=== PATIENT | female | born 1970 | race Caucasian/White ===

== ENCOUNTER 2018-04-12 16:42 | Emergency (ER) | payer MEDICAID ==
--- NOTE | 2018-04-12 18:30 | ED PDOC ---
Arrival/HPI - General Chief Complaint: Back Pain Time Seen by Provider: 04/12/18 17:02 Historian: Patient - History of Present Illness Narrative History of Present Illness (Text): you were treated in the ED today for having upper and lower back pain for about 2 weeks then started having transient chest pain but otherwise without any fall/ injury/neck pain/loss of consciousness/nausea/vomiting/headache/dizziness/ difficulty breathing/abdomen pain/numbness/tingling/loss of limb or bowel or bladder function/pain with urination/drug use/travel/prior blood clots/hormonal use/thoughts to harm yourself or others or hallucinations. Time/Duration: > week (2) Symptom Onset: Gradual Symptom Course: Intermittent Quality: Aching Severity Level: 2 Activities at Onset: Rest Context: Sitting Past Medical History - Provider Review Nursing Documentation Reviewed: Yes - Travel History Have you recently traveled outside [place] w/in the past 3 mons?: No - Cardiac Hx Cardiac Disorders: No - Pulmonary Hx Respiratory Disorders: No - Neurological Hx Neurological Disorder: No - HEENT Hx HEENT Disorder: No - Renal Hx Renal Disorder: No - Endocrine/Metabolic Hx Endocrine Disorders: No - Hematological/Oncological Hx Blood Disorders: No - Integumentary Hx Dermatological Disorder: No - Musculoskeletal/Rheumatological Hx Musculoskeletal Disorders: No - Gastrointestinal Hx Gastrointestinal Disorders: Yes Hx Gall Bladder Disease: Yes - Genitourinary/Gynecological Hx Genitourinary Disorders: No - Psychiatric Hx Psychophysiologic Disorder: No Hx Substance Use: No - Surgical History Hx Cholecystectomy: Yes Family/Social History - Physician Review Nursing Documentation Reviewed: Yes Family/Social History: No Known Family HX Smoking Status: Never Smoked Hx Alcohol Use: No Hx Substance Use: No Allergies/Home Meds Allergies/Adverse Reactions: Allergies No Known Allergies Allergy (Verified 04/12/18 16:47) Home Medications: Home Meds Medication Instructions Recorded Confirmed Latanoprost 0.005% Opht [Xalatan 1 drop OU HS 04/12/18 04/12/18 Opht] Review of Systems - Review of Systems Constitutional: Normal Eyes: Normal ENT: Normal Respiratory: Normal Cardiovascular: Chest Pain Gastrointestinal: Normal Genitourinary Female: Normal Musculoskeletal: Back Pain Skin: Normal Neurological: Normal Endocrine: Normal Hemo/Lymphatic: Normal Psychiatric: Normal Physical Exam Vital Signs Reviewed: Yes Vital Signs Temp Pulse Resp BP Pulse Ox 04/12/18 16:48 99.0 F 83 19 145/87 98 Temperature: Afebrile Blood Pressure: Hypertensive Pulse: Regular Respiratory Rate: Normal Appearance: Positive for: Well-Appearing, Non-Toxic, Comfortable Pain Distress: None Mental Status: Positive for: Alert and Oriented X 3 - Systems Exam Head: Present: Atraumatic, Normocephalic Pupils: Present: PERRL Extroacular Muscles: Present: EOMI Conjunctiva: Present: Normal Ears: Present: Normal Mouth: Present: Moist Mucous Membranes Pharnyx: Present: Normal Nose (External): Present: Atraumatic Nose (Internal): Present: Normal Inspection Neck: Present: Normal Range of Motion, Other (no c-t-l spinal tenderness but mild left mid-back muscle discomfort wo redness) Respiratory/Chest: Present: Clear to Auscultation, Good Air Exchange Cardiovascular: Present: Regular Rate and Rhythm, Other (no pulsatile masses) Back: Present: Paraspinal Tenderness Upper Extremity: Present: Normal Inspection Lower Extremity: Present: Normal Inspection Neurological: Present: GCS=15, CN II-XII Intact, Speech Normal, Motor Func Grossly Intact Skin: Present: Warm, Normal Color Psychiatric: Present: Alert, Oriented x 3, Normal Insight, Normal Concentration Medical Decision Making ED Course and Treatment: you were treated in the ED today for having upper and lower back pain for about 2 weeks then started having transient chest pain but otherwise without any fall/ injury/neck pain/loss of consciousness/nausea/vomiting/headache/dizziness/ difficulty breathing/abdomen pain/numbness/tingling/loss of limb or bowel or bladder function/pain with urination/drug use/travel/prior blood clots/hormonal use/thoughts to harm yourself or others or hallucinations. You were otherwise breathing easily, pink moist lips, smiling and talking easily, good strength/ sensation, alert/oriented, walking easily, clear lungs, no abdomen tenderness, no pulsatile masses, no spinal tenderness but mild mid-left back muscle discomfort and without redness, no fever temp 99, stable heart rate 83, stable breathing rate 19, excellent oxygen level 98% room air, elevated blood pressure 145/87 which we recommend repeat in 2-3 days primary care office to determine further treatment, ECG normal sinus rhythm, observation done in the ED with improvement, counselled to have lab tests and radiology imaging done but you refused and cautioned for complications/ but you wanted to followup with your primary care doctor tomorrow and wanted to go home. 1. Recommend follow-up primary care tomorrow to review symptoms, referral to cardiology review symptoms and spine clinic to review your symptoms. 2. If any worsening pain, fever, chills, nausea, vomiting, difficulty breathing, numbness, loss of limb function, pain with urination or any medical condition then return to the ED. 04/12/18 18:32 Reassessment Condition: Re-examined, Improved Disposition/Present on Arrival - Present on Arrival Any Indicators Present on Arrival: No History of DVT/PE: No History of Uncontrolled Diabetes: No Urinary Catheter: No History of Decub. Ulcer: No History Surgical Site Infection Following: None - Disposition Have Diagnosis and Disposition been Completed?: Yes Diagnosis: Chest pain, Back pain Disposition: AGAINST MEDICAL ADVICE Disposition Time: 18:33 Condition: IMPROVED Discharge Instructions (ExitCare): Chest Pain (ED), Chest Pain (DC), Upper Back Pain (DC) Additional Instructions: you were treated in the ED today for having upper and lower back pain for about 2 weeks then started having transient chest pain but otherwise without any fall/ injury/neck pain/loss of consciousness/nausea/vomiting/headache/dizziness/ difficulty breathing/abdomen pain/numbness/tingling/loss of limb or bowel or bladder function/pain with urination/drug use/travel/prior blood clots/hormonal use/thoughts to harm yourself or others or hallucinations. You were otherwise breathing easily, pink moist lips, smiling and talking easily, good strength/ sensation, alert/oriented, walking easily, clear lungs, no abdomen tenderness, no pulsatile masses, no spinal tenderness but mild mid-left back muscle discomfort and without redness, no fever temp 99, stable heart rate 83, stable breathing rate 19, excellent oxygen level 98% room air, elevated blood pressure 145/87 which we recommend repeat in 2-3 days primary care office to determine further treatment, ECG normal sinus rhythm, observation done in the ED with improvement, counselled to have lab tests and radiology imaging done but you refused and cautioned for complications/ but you wanted to followup with your primary care doctor tomorrow and wanted to go home. 1. Recommend follow-up primary care tomorrow to review symptoms, referral to cardiology review symptoms and spine clinic to review your symptoms. 2. If any worsening pain, fever, chills, nausea, vomiting, difficulty breathing, numbness, loss of limb function, pain with urination or any medical condition then return to the ED. Referrals: Lucita Ro MD [Primary Care Provider] - Follow up with primary
[2018-04-12 18:37] VITALS: BP 138/87; PULSE 80; RESP 16; TEMP 97.7; O2SAT 97
--- NOTE | 2018-04-13 22:01 | CARD ---
APPROVED REPORT EKG Measurement Heart [id number] <Conclusion> Normal sinus rhythm Normal ECG
== END 2018-04-12 18:25 | disposition left against medical advice (07) ==
LOC: ED 16:42 → MERGE 16:42 → ED 18:25
DX: M54.5 Low back pain (principal); R07.9 Chest pain, unspecified